=== PATIENT | male | born 1975 | race Two or more races ===

== ENCOUNTER 2024-12-23 09:46 | Outpatient (RCR) | payer MEDICAID, SELFPAY ==
--- NOTE | 2024-12-23 10:12 | PT.OIERPT ---
PT OP Initial Eval Patient Information Outpatient Physical Therapy Treatment Date: 12/23/24 Visit Reasons: LEFT KNEE SURGERY Medical Diagnosis: [id number] Treatment Dx #1: Left Knee Pain Start of Care: 12/23/24 Date of Onset: 10/30/24 Smoking Status Smoking Status: Never smoker Initial Assessment Subjective: Pt is a 49 y/o male s/p left knee arthroscopic surgery 10/30/24 due to work injury where he twisted his knee. Pt still has pain 5/10 with certain activities. Pt has limitation with standing, deep squat, kneeling, recreational activities and work duties (lawn service). Objective: Left Knee AROM: 0 deg to 125 deg with pain Left Knee MMTs: grossly 4-/5 Left Hip MMTs: grossly 3+/5 SLS: 10 sec Assessment: Pt demonstrate left knee pain and weakness s/p knee surgery leading to difficulty with ADLs. Pt will benefit from physical therapy to increase ROM, strength, and knee stability Short Term and Fdc Goals 1) Increase left knee AROM WNL in 8 wks to be able to perform chores 2) Decrease knee pain to 2/10 in 8 wks to be able to perform work duties with less limitation 3) Increase left hip MMTs grossly to 4-/5 in 8 wks to be able to perform recreational activities 4) increase left knee MMTs grossly to 4/5 in 8 wks to be able to perform squatting activities 5) Indep with HEP Treatment Plan 1) Manual Therapy 2) Therapeutic Activities 3) Therapeutic Exercises 4) Modalities (ice, heat) 5) Balance Training 6) Gait Training Frequency and Duration: 2 x wk for 8 wks Certification Dates: 12/23/24 to 03/23/25 Procedure Charges OP PT Eval Mod Complex 30 minutes: Yes
== END 2024-12-27 23:59 | disposition home or self-care (01) ==
LOC: CPTX 09:46
PROVIDERS: PCP Orthopaedic Surgery; Referring Provider Orthopaedic Surgery; Visit Provider Orthopaedic Surgery
DX: M25.562 Pain in left knee (principal); R53.1 Weakness; S83.272D Complex tear of lateral meniscus, current injury, left knee, subsequent encounter; X50.1XXD Overexertion from prolonged static or awkward postures, subsequent encounter
CPT/HCPCS: 97162

== ENCOUNTER 2025-01-20 15:30 | Outpatient (RCR) | payer MEDICAID, SELFPAY ==
--- NOTE | 2024-12-30 16:06 | PT.ODAYNRPT ---
PT Outpatient Daily Note OP Daily Note Outpatient Physical Therapy Treatment Date: 12/30/24 Visit Reasons: Left knee surgery Subjective: Pt's knee is better. Pt has a follow up appt with surgeon next week. Objective: Please see flow chart for list of ther ex performed Assessment: progressing with closed chain exercises. Pace patient throughout PT session; Pt decline post ice. Plan: Continue with PT Length of Time (minutes) of Treatment: 30 Minutes Procedure Charges Therapeutic Exercise 30 minutes: Yes
--- NOTE | 2025-01-06 15:57 | PT.ODAYNRPT ---
PT Outpatient Daily Note OP Daily Note Outpatient Physical Therapy Treatment Date: 01/06/25 Visit Reasons: Left knee surgery Subjective: No new complaints. Objective: Please see flow sheet for ther ex list. Assessment: Pt instructed on performing Tg squat exercise to tolerable squat depth, pt complied. Plan: Continue with POC. Length of Time (minutes) of Treatment: 30 Minutes Procedure Charges Therapeutic Exercise 30 minutes: Yes
--- NOTE | 2025-01-14 15:47 | PT.ODAYNRPT ---
PT Outpatient Daily Note OP Daily Note Outpatient Physical Therapy Treatment Date: 01/14/25 Visit Reasons: Left knee surgery Subjective: Pt reports L knee is doing better, no pain to report. Objective: Please see flow sheet for ther ex list. Assessment: Pt presents in clinic with decrease pain allowing for progression in clinic. Plan: Continue with POC, assess response to treatment. Procedure Charges Therapeutic Exercise 30 minutes: Yes
--- NOTE | 2025-01-20 16:15 | PT.ODAYNRPT ---
PT Outpatient Daily Note OP Daily Note Outpatient Physical Therapy Treatment Date: 01/20/25 Visit Reasons: Left knee surgery Subjective: Pt reports knee is doing better, no pain to report. Objective: Please see flow sheet for ther ex list. Assessment: Added balance interventions completed with good knee mechanics, no knee pain to report. Plan: Assess response to added interventions. Length of Time (minutes) of Treatment: 30 Minutes Procedure Charges Therapeutic Exercise 30 minutes: Yes
== END 2025-01-24 23:59 | disposition home or self-care (01) ==
LOC: CPTX 15:30
PROVIDERS: PCP Orthopaedic Surgery; Referring Provider Orthopaedic Surgery; Visit Provider Orthopaedic Surgery
DX: M25.562 Pain in left knee (principal); X50.1XXD Overexertion from prolonged static or awkward postures, subsequent encounter; S83.272D Complex tear of lateral meniscus, current injury, left knee, subsequent encounter; R53.1 Weakness
CPT/HCPCS: 97110

== ENCOUNTER 2025-02-17 16:00 | Outpatient (RCR) | payer MEDICAID, SELFPAY ==
--- NOTE | 2025-01-27 15:57 | PT.ODAYNRPT ---
PT Outpatient Daily Note OP Daily Note Outpatient Physical Therapy Treatment Date: 01/27/25 Visit Reasons: Left knee surgery Subjective: Pt's knee is better. Pt notice some pressure with the knee when squatting. Pt will follow up with surgeon at the end of the month. Objective: Please see flow chart for list of ther ex performed Assessment: progressing with closed chain exercises. Instructed patient on prone knee flexion stretch to increase knee flexion AROM Plan: Continue with PT Length of Time (minutes) of Treatment: 30 Minutes Procedure Charges Therapeutic Exercise 30 minutes: Yes
--- NOTE | 2025-02-17 16:44 | PT.ODAYNRPT ---
PT Outpatient Daily Note OP Daily Note Outpatient Physical Therapy Treatment Date: 02/17/25 Visit Reasons: Left knee surgery Subjective: Pt reports knee is sore he hyperextended when stepping down a curb on few days ago. Objective: Please see flow sheet for ther ex list. Assessment: Added sherry pt completed with good knee alignment. Plan: Continue with POC. Length of Time (minutes) of Treatment: 30 Minutes Procedure Charges Therapeutic Exercise 30 minutes: Yes
== END 2025-02-24 23:59 | disposition home or self-care (01) ==
LOC: CPTX 16:00
PROVIDERS: PCP Orthopaedic Surgery; Referring Provider Orthopaedic Surgery; Visit Provider Orthopaedic Surgery
DX: M25.562 Pain in left knee (principal); R53.1 Weakness; S83.272D Complex tear of lateral meniscus, current injury, left knee, subsequent encounter; X50.1XXD Overexertion from prolonged static or awkward postures, subsequent encounter
CPT/HCPCS: 97110

== ENCOUNTER 2025-03-20 16:00 | Outpatient (RCR) | payer MEDICAID, SELFPAY ==
--- NOTE | 2025-03-03 16:31 | PT.ODAYNRPT ---
PT Outpatient Daily Note OP Daily Note Outpatient Physical Therapy Treatment Date: 03/03/25 Visit Reasons: Left knee surgery Subjective: Pt reports L knee is doing better. Objective: Please see flow sheet for ther ex list. Assessment: Progressing interventions per post op protocol, pt tolerated well. Plan: Continue with POc. Length of Time (minutes) of Treatment: 30 Minutes Procedure Charges Therapeutic Exercise 30 minutes: Yes
--- NOTE | 2025-03-20 16:41 | PT.ODAYNRPT ---
PT Outpatient Daily Note OP Daily Note Outpatient Physical Therapy Treatment Date: 03/20/25 Visit Reasons: Left knee surgery Subjective: Pt reports has been doing well, does not have pain at this time. Pt has returned to work, no complaints at this time. Objective: Please see flow sheet for ther ex list. Assessment: Progression of interventions completed with good tolerance. Plan: Progress treatment and strengthening. Length of Time (minutes) of Treatment: 30 Minutes Procedure Charges Therapeutic Exercise 30 minutes: Yes
== END 2025-03-26 23:59 | disposition home or self-care (01) ==
LOC: CPTX 16:00
PROVIDERS: PCP Orthopaedic Surgery; Referring Provider Orthopaedic Surgery; Visit Provider Orthopaedic Surgery
DX: M25.562 Pain in left knee (principal); R53.1 Weakness; S83.272D Complex tear of lateral meniscus, current injury, left knee, subsequent encounter; X50.1XXD Overexertion from prolonged static or awkward postures, subsequent encounter
CPT/HCPCS: 97110